=== PATIENT | female | born 1995 | race Two or more races ===

== ENCOUNTER 2022-09-06 22:30 | Emergency (ER) | payer MEDICAID, OTHER ==
[~2022-09-06] VITALS: Ht 170.2 cm; Wt 97.2 kg
[2022-09-06] MEDS: FAMOTIDINE 20 MG TAB PO ONE ×2 (23:08→23:14)
[2022-09-06] MEDS: methylPREDNISolone SOD SUCC 125 MG/2 ML VL IM ONE ×2 (23:09→23:12)
[2022-09-06] MEDS: diphenhdrAMINE HCL 50 MG/1 ML VL IM ONE ×2 (23:09→23:13)
[2022-09-07] MEDS ORDERED: PRED20TA2 PO (00:12)
[2022-09-07 00:20] VITALS: BP 130/88
== END 2022-09-07 00:21 | disposition home or self-care (01) ==
LOC: ER 22:30
DX: T78.40XA Allergy, unspecified, initial encounter (principal); X58.XXXA Exposure to other specified factors, initial encounter
CPT/HCPCS: 96372; 99284; J1200; J2930